=== PATIENT | male | born 1995 | race Caucasian/White ===

== ENCOUNTER 2022-05-18 08:08 | Emergency (ER) | payer OTHER, BC ==
[2022-05-18] MEDS ORDERED: Diphtheria,Pertussis(Acell),Tetanus Vaccine 0.5 ML Syringe IM ONE (09:04)
== END 2022-05-18 10:45 | disposition home or self-care (01) ==
LOC: KA.ED 08:08
DX: S02.2XXA Fracture of nasal bones, initial encounter for closed fracture (principal); S00.83XA Contusion of other part of head, initial encounter; R04.0 Epistaxis; J34.2 Deviated nasal septum; Z91.048 Other nonmedicinal substance allergy status; V49.40XA Driver injured in collision with unspecified motor vehicles in traffic accident, initial encounter; Y92.410 Unspecified street and highway as the place of occurrence of the external cause
CPT/HCPCS: 70486; 71046; 99284; 99285